=== PATIENT | male | born 2005 | race Caucasian/White ===

== ENCOUNTER 2024-05-10 21:33 | Emergency (ER) | payer OTHER ==
[2024-05-10 22:02] VITALS: BP 119/80; PULSE 102; RESP 16; TEMP 98.6; BMI 27.6
[2024-05-10 22:57] LABS: BASO % 0.3 % (0-2.0); EOS % 0.1 % (0-4.5); HEMATOCRIT 42.8 % (35.4-49); HEMOGLOBIN 13.8 GM/dL (11.7-16.9); LYMPH % 17.3 % (8-40); MCH 23.1 pg (25.7-33.7); MCHC 32.2 g/dl (32.0-35.9); MEAN PLT VOLUME 7.9 fl (7.5-11.1); MONO % 3.2 % (3.8-10.2); NEUT % 79.1 % (42.8-82.8); PLATELET COUNT 296 10^3/uL (134-434); RBC 5.95 M/mm3 (4.00-5.60); RDW 13.6 % (11.9-15.9); URINE APPEARANCE CLEAR; URINE BILIRUBIN NEGATIVE (NEGATIVE); URINE COLOR YELLOW; URINE GLUCOSE (UA) NEGATIVE (NEGATIVE); URINE KETONE NEGATIVE (NEGATIVE); URINE LEUK ESTERASE NEGATIVE (NEGATIVE); URINE NITRITE NEGATIVE (NEGATIVE); URINE PROTEIN NEGATIVE (NEGATIVE); URINE UROBILINOGEN 0.2 mg/dL (0.2-1.0); WHITE BLOOD COUNT 13.8 K/mm3 (4.0-10.0)
[2024-05-10 23:18] LABS: CALCIUM 9.6 mg/dL (8.5-10.1)
[2024-05-10 23:19] LABS: MAGNESIUM 2.1 mg/dL (1.8-2.4)
[2024-05-10 23:19] LABS: ALBUMIN 3.8 g/dl (3.4-5.0); BLOOD UREA NITROGEN 12.9 mg/dL (7-18)
[2024-05-10 23:22] LABS: CREATININE 1.1 mg/dL (0.55-1.3)
[2024-05-10 23:23] LABS: PHOSPHOROUS 4.4 mg/dL (2.5-4.9)
[2024-05-10 23:24] LABS: BILIRUBIN,TOTAL 0.3 mg/dL (0.2-1); TOT PROT 6.8 g/dl (6.4-8.2)
[2024-05-11 00:12] LABS: HIV INTERPRETATION NEGATIVE (NEGATIVE)
[2024-05-11] MEDS ORDERED: FAMOTIDINE 20 MG TABLET ONE (00:29)
[2024-05-11] MEDS ORDERED: MAG HYDROX/AL HYDROX/SIMETH 30 ML UNIT-DOSE CUP ONE (00:30)
[2024-05-11] MEDS ORDERED: SUCRALFATE 1 GM TABLET (FP) ONE (00:30)
[2024-05-11] MEDS: FAMOTIDINE 20 MG TABLET PO ONE (00:59)
[2024-05-11] MEDS: MAG HYDROX/AL HYDROX/SIMETH 30 ML UNIT-DOSE CUP PO ONE (00:59)
[2024-05-11] MEDS: SUCRALFATE 1 GM TABLET (FP) PO ONE (00:59)
== END 2024-05-11 00:59 | disposition home or self-care (01) ==
LOC: JER 21:33
DX: R42 Dizziness and giddiness (principal); Z20.822 Contact with and (suspected) exposure to COVID-19
CPT/HCPCS: 0241U-QW; 36415; 80053; 81003; 82550; 83735; 84100; 84484; 85025; 86803; 87086; 87389; 93005; 93010; 99284-25